=== PATIENT | female | born 2000 | race Caucasian/White ===

== ENCOUNTER 2024-12-08 10:58 | Emergency (ER) | payer OTHER, SELFPAY ==
[2024-12-08 11:01] VITALS: BP 133/83
--- NOTE | 2024-12-08 12:54 | ED.GENMED ---
History of Present Illness
General
Chief Complaint: Crisis Evaluation
Source: patient
Exam Limitations: none
Time Seen by Provider: 12/08/24 11:36
History of Present Illness
History of Present Illness:
24yoF with a history of bipolar disorder presenting with her mother for psychiatric evaluation. Patient is at the tail end of a manic episode. She has been dealing with impulsivity and suicidal ideations. She was concerned so decided to come to
the ED for evaluation. She denies any suicidal plans or history of suicide attempts. She has never had inpatient treatment in the past. She does have a psychiatrist which she has been following with for many years.
Phy Exam
General Physical Exam
General Presentation: well appearing and no apparent distress
General Skin: warm and dry
General Habitus: normal
General Mental: alert
General Hydration: appears well hydrated
ENT Exam
ENT Exam: normocephalic
Pulmonary Exam
Pulmonary Exam: no respiratory distress
Neurological Exam
Neurological Exam: alert
[place] Coma Scale
Eye Opening: Spontaneous
Verbal Response: Oriented
Motor Response: Obeys Commands
GCS Total Score: 15
Skin Exam
Skin Exam: normal color and warm/dry
Psychiatric Exam
Psychiatric Exam: depressed and other (+SI without plan. No signs of psychosis. Cooperative with assessment.)
Course
Orders/Labs/Results
Orders:
Orders
12/08/24 11:04
1:1 Observation - Suicide/ Violent Behavior As Directed
Crisis Consult Urgent
Reason for Consult: SI
Vital Signs
Initial and Last Documented VS:
Initial Vital Signs
Temp Pulse Resp BP Pulse Ox
98.3 F 66 16 133/83 95
12/08/24 11:01 12/08/24 11:01 12/08/24 11:01 12/08/24 11:01 12/08/24 11:01
Last Documented Vital Signs
Temp Pulse Resp BP Pulse Ox
98.3 F 66 16 133/83 95
12/08/24 11:01 12/08/24 11:01 12/08/24 11:01 12/08/24 11:01 12/08/24 12:54
MDM/Problems Addressed
Differential Diagnosis Includes:
24yoF here for psychiatric evaluation. Hx of bipolar. C/o impulsivity. +SI without plan. VSS. Patient medically cleared.
Patient evaluated by crisis and plan is for intensive outpatient program. [facility] Patient and mother in agreement with plan. ED return precautions reviewed and she was discharged in stable condition.
*Pulse Oximetry
SaO2: 95
Oxygen Mode of Delivery: Room air
Patient hypoxic: no (95%)
*Critical Care Note
Total Time (30-74mins, 75-104mins- exclusive of procedures): Not Applicable
ED Attending Note
-
Portions of this chart may have been created with voice recognition software.� Occasional wrong word or��sound alike� substitutions may have occurred due to the inherent limitations of voice recognition software.
Discharge Plan
Departure
Patient Disposition: Home (Routine Discharge)
Date of Disposition: 12/08/24
Time of Disposition: 12:54
Patient with high blood pressure during this ER visit?: No
Discharge Problem:
Encounter for psychiatric assessment, Suicidal ideation
Instructions: Suicide prevention
Referrals:
Cary Elliott CRNP [Family Provider, Family Practice]
Stand Alone Forms: Return to Work
Activity Restrictions/Additional Instructions:
Please follow-up with your psychiatrist in the outpatient mental health resources provided. Return to the ER with any worsening symptoms or plans of suicide.
Interventions
Interventions:
*Risk Screen - Suicide Last Done: 12/08/24 11:03
*General Assessment Last Done: 12/08/24 13:09
*Neglect/Abuse Screening Last Done: 12/08/24 11:03
*ED- Fall Risk Assessment Last Done: 12/08/24 13:09
*ED COVID-19 Vaccine History Last Done: 12/08/24 13:09
*Nursing Disposition Last Done: 12/08/24 13:09
ED-Psychological Assessment Last Done: 12/08/24 13:09
Discharge Date and Time
Discharge Date/Time: 12/08/24 13:10
Print Language: LIBERIAN
== END 2024-12-08 13:10 | disposition home or self-care (01) ==
LOC: EMR 10:58
PROVIDERS: EMERGENCY PHYSICIAN Emergency Medicine; FAMILY PHYSICIAN Nurse Practitioner Family
DX: R45.851 Suicidal ideations (principal); F31.9 Bipolar disorder, unspecified
CPT/HCPCS: 99283